=== PATIENT | male | born 1960 | race Caucasian/White ===

== ENCOUNTER → 2019-03-30 | Outpatient (CLI) | payer BC ==
--- NOTE | 2019-03-30 13:04 | Diagnostic Imaging Report ---
INDICATION: Elbow pain COMPARISON: None. FINDINGS: 3 views of the left elbow show no fractures, dislocations, or other acute bony abnormalities identified. Joint spaces are well maintained throughout. The soft tissues appear unremarkable. No radiopaque foreign bodies are identified. IMPRESSION: No acute fractures or dislocations of the left elbow. Dictated by: Dictated on workstation # [id number]
== END ==
LOC: RAD FS 12:51
PROVIDERS: ATTEND Nurse Practitioner
DX: M25.522 Pain in left elbow (principal)
CPT/HCPCS: 73080

== ENCOUNTER → 2019-12-15 | Outpatient (CLI) | payer BC ==
--- NOTE | 2019-12-15 09:52 | Diagnostic Imaging Report ---
EXAMINATION: CHEST, PA AND LATERAL. CLINICAL INDICATION: 59-year-old male, cough, congestion. COMPARISON: None. FINDINGS: The heart size and mediastinal contours are unremarkable. There is a normal variant azygous lobe. There is no identified pneumothorax. There is no pleural effusion. There is no identified focal airspace consolidation. IMPRESSION: No identified acute cardiopulmonary abnormality. Dictated by: Dictated on workstation # [id number]
== END ==
LOC: RAD FS 09:25
PROVIDERS: ATTEND Nurse Practitioner Family
DX: J40 Bronchitis, not specified as acute or chronic (principal)
CPT/HCPCS: 71046

== ENCOUNTER → 2020-09-21 | Outpatient (CLI) | payer BC ==
--- NOTE | 2020-09-21 10:22 | Diagnostic Imaging Report ---
INDICATION: Pain and swelling to the left ankle. Time of exam: 9:58 AM 3 views of the left ankle were obtained. Ankle mortise is well maintained. Talar dome is smooth. There is some spurring along the medial malleolus. No osteochondral defect is detected. No fracture or dislocation is seen. There is a moderate-sized plantar calcaneal spur. IMPRESSION: Chronic changes. No acute bony abnormality is detected. Dictated by: Dictated on workstation # [id number]
== END ==
LOC: RAD FS 09:53
PROVIDERS: ATTEND Nurse Practitioner
DX: M25.572 Pain in left ankle and joints of left foot (principal); M25.475 Effusion, left foot
CPT/HCPCS: 73610

== ENCOUNTER 2020-11-28 16:35 | Inpatient (IN) | payer BC ==
[~2020-11-28] VITALS: Ht 180.3 cm; Wt 128.5 kg
--- NOTE | 2020-11-28 16:46 | ED Dyspnea ---
General Stated Complaint: COVID+,PNEUMONIA Source of Information: Patient Exam Limitations: No Limitations History of Present Illness Date Seen by Provider: Nov 28, 2020 Time Seen by Provider: 16:46 Initial Comments 60-year-old male presents with concerns for pneumonia. Patient was tested positive for COVID 9 days ago. Patient went to his primary care provider within the last day or 2 he has had some worsening shortness of breath. They report that they took an x-ray to primary care office and showed pneumonia. Patient oxygen saturations at the clinic was in the upper 80s and low 90s and he was sent to the ER for further evaluation. Patient denies any fevers chills nausea vomiting chest pain or diaphoresis. Patient does report he he had shortness of breath is worsened. He has known known underlying lung disease or COPD. Allergies and Home Medications Allergies Coded Allergies: No Known Drug Allergies (Unverified , 11/28/20) Patient Home Medication List Home Medication List Reviewed: Yes Review of Systems Review of Systems Constitutional: No chills, No fever EENTM: no symptoms reported Respiratory: cough, short of breath Cardiovascular: No chest pain, No palpitations Gastrointestinal: No constipation, No diarrhea, No nausea, No vomiting Genitourinary: no symptoms reported Musculoskeletal: no symptoms reported Skin: no symptoms reported Endocrine: No Symptoms Reported Hematologic/Lymphatic: No Symptoms Reported Past Awwmawp-Ghesvq-Rjktpp Hx Past Med/Social Hx: Reviewed Nursing Past Med/Soc Hx Patient Social History Recent Foreign Travel: No Contact w/Someone Who Travel: No Physical Exam Vital Signs Vital Signs - First Documented 11/28/20 16:47 Temp 37.2 Pulse 77 Resp 22 B/P (MAP) 131/68 (89) Pulse Ox 92 O2 Delivery Room Air Capillary Refill : Height, Weight, BMI Height: '" Weight: lbs. oz. kg; BMI Method: General Appearance: No Apparent Distress, Obese HEENT: PERRL/EOMI Neck: Non Tender, Supple Respiratory: No Accessory Muscle Use, No Respiratory Distress, Decreased Breath Sounds (minimal), Wheezing Cardiovascular: Regular Rate, Rhythm, No Edema Gastrointestinal: Non Tender, Soft Extremity: Normal Capillary Refill, Normal Inspection Neurologic/Psychiatric: Alert, Oriented x3, No Motor/Sensory Deficits, Normal Mood/Affect, practice coordinator II-XII Norm as Tested Skin: Normal Color, Warm/Dry Focused Exam Lactate Level 11/28/20 17:05: Lactic Acid Level 1.27 Lactic Acid Level Laboratory Tests Test 11/28/20 17:05 Lactic Acid Level 1.27 MMOL/L (0.50-2.00) Progress/Results/Core Measures Results/Orders Lab Results Laboratory Tests Test 11/28/20 17:05 Range/Units White Blood Count 3.4 L 4.3-11.0 10^3/uL Red Blood Count 4.54 4.35-5.85 10^6/uL Hemoglobin 13.6 13.3-17.7 G/DL Hematocrit 41 40-54 % Mean Corpuscular Volume 89 80-99 FL Mean Corpuscular Hemoglobin 30 25-34 PG Mean Corpuscular Hemoglobin Concent 34 32-36 G/DL Red Cell Distribution Width 13.8 10.0-14.5 % Platelet Count 108 L 130-400 10^3/uL Mean Platelet Volume 11.1 H 7.4-10.4 FL Immature Granulocyte % (Auto) 2 % Neutrophils (%) (Auto) 62 42-75 % Lymphocytes (%) (Auto) 27 12-44 % Monocytes (%) (Auto) 9 0-12 % Eosinophils (%) (Auto) 0 0-10 % Basophils (%) (Auto) 0 0-10 % Neutrophils # (Auto) 2.1 1.8-7.8 X 10^3 Lymphocytes # (Auto) 0.9 L 1.0-4.0 X 10^3 Monocytes # (Auto) 0.3 0.0-1.0 X 10^3 Eosinophils # (Auto) 0.0 0.0-0.3 10^3/uL Basophils # (Auto) 0.0 0.0-0.1 10^3/uL Immature Granulocyte # (Auto) 0.1 0.0-0.1 10^3/uL Sodium Level 137 135-145 MMOL/L Potassium Level 3.8 3.6-5.0 MMOL/L Chloride Level 99 98-107 MMOL/L Carbon Dioxide Level 28 21-32 MMOL/L Anion Gap 10 5-14 MMOL/L Blood Urea Nitrogen 21 H 7-18 MG/DL Creatinine 1.07 0.60-1.30 MG/DL Estimat Glomerular Filtration Rate > 60 BUN/Creatinine Ratio 20 Glucose Level 99 70-105 MG/DL Lactic Acid Level 1.27 0.50-2.00 MMOL/L Calcium Level 8.7 8.5-10.1 MG/DL Corrected Calcium 8.9 8.5-10.1 MG/DL Total Bilirubin 0.4 0.1-1.0 MG/DL Aspartate Amino Transf (AST/SGOT) 46 H 5-34 U/L Alanine Aminotransferase (ALT/SGPT) 46 0-55 U/L Alkaline Phosphatase 50 40-136 U/L C-Reactive Protein 6.23 H <0.50 MG/DL Total Protein 6.6 6.4-8.2 GM/DL Albumin 3.8 3.2-4.5 GM/DL My Orders Orders - REINOSO,JOHN L DO Cbc With Automated Diff (11/28/20 16:52) Comprehensive Metabolic Panel (11/28/20 16:52) Crp Fs (11/28/20 16:52) Chest 1 View Ap/Pa Only (11/28/20 16:52) Albuterol/Ipra Inhalation Soln (Duoneb I (11/28/20 17:00) Svn Small Volume Nebulizer (11/28/20 16:52) Blood Culture (11/28/20 17:06) Lactic Acid Analyzer (11/28/20 17:06) Dexamethasone Injection (Decadron Inje (11/28/20 17:45) Acetaminophen Tablet (Tylenol Tablet) (11/28/20 18:22) Orphenadrine Inj (Ed Only) (Norflex Inje (11/28/20 18:22) Enoxaparin Injection (Lovenox Injection) (11/28/20 19:00) Medications Given in ED Current Medications Medications Dose Ordered Sig/Vicente Route Start Time Stop Time Status Last Admin Dose Admin Albuterol/ Ipratropium 3 ml ONCE ONCE INH 11/28/20 17:00 11/28/20 17:01 DC 11/28/20 17:22 3 ML Dexamethasone Sodium Phosphate 10 mg ONCE ONCE IV 11/28/20 17:45 11/28/20 17:46 DC 11/28/20 18:19 10 MG Vital Signs/I&O 11/28/20 11/28/20 16:47 17:12 Temp 37.2 Pulse 77 Resp 22 B/P (MAP) 131/68 (89) Pulse Ox 92 O2 Delivery Room Air Room Air Progress Progress Note : Time: 17:55 Progress Note Patient fell asleep while waiting to be discharged. He was initially wanted to be discharged home for a trial of outpatient therapy. However when he fell asleep his oxygen dropped into the mid 80s. This may be normal for him as he potentially has obstructive sleep apnea. However patient to be admitted for treatment based on this low oxygen. 1844 patient requested transfer to an [facility] this Dr. Proctor's his PCP. I called Dr. Proctor at 1800, [phone], with no response. We called the [facility] at 1845, they report that no COVID beds available. I then called and discussed with Dr. Leyva at [facility] who graciously accepted patient transferred to [place] in stable condition Departure Communication (Admissions) Time/Spoke to Consulting Phy: 18:47 Impression Primary Impression: Pneumonia due to COVID-19 virus Disposition: 30 STILL A PATIENT Condition: Stable Admissions Decision to Admit Reason: Admit from ER (General) Decision to Admit/Date: Nov 28, 2020 Time/Decision to Admit Time: 18:30 Transfer Transfer Facility: Departure-Patient Inst. Referrals: BRANDO PROCTOR MD (PCP/Family) Primary Care Physician Patient Instructions: Coronavirus Disease 2019 (COVID-19) Overview Add. Discharge Instructions: JOHN REINOSO DO Nov 28, 2020 16:46
[2020-11-28] MEDS ORDERED: RT-ALBUTEROL/IPRATROPIUM 3 ML (DUONEB) VIAL INH ONE (17:00)
[2020-11-28 17:14] LABS: BASOPHILS % (AUTO) 0 % (0-10); EOSINOPHILS % (AUTO) 0 % (0-10); HEMATOCRIT 41 % (40-54); HEMOGLOBIN 13.6 G/DL (13.3-17.7); LYMPHOCYTES % (AUTO) 27 % (12-44); MEAN CORPUSCULAR HEMOGLOBIN 30 PG (25-34); MEAN CORPUSCULAR HGB CONC 34 G/DL (32-36); MEAN CORPUSCULAR VOLUME 89 FL (80-99); MEAN PLATELET VOLUME 11.1 FL (7.4-10.4); MONOCYTES % (AUTO) 9 % (0-12); NEUTROPHILS % (AUTO) 62 % (42-75); PLATELET COUNT 108 10^3/uL (130-400); WHITE BLOOD COUNT 3.4 10^3/uL (4.3-11.0)
[2020-11-28 17:15] LABS: LYMPHOCYTES # (AUTO) 0.9 X 10^3 (1.0-4.0); MONOCYTES # (AUTO) 0.3 X 10^3 (0.0-1.0); NEUTROPHILS # (AUTO) 2.1 X 10^3 (1.8-7.8)
--- NOTE | 2020-11-28 17:16 | Diagnostic Imaging Report ---
EXAM: CHEST 1 VIEW AP/PA ONLY INDICATION: Shortness of breath. COVID positive. COMPARISON: Chest radiograph from 12/15/2019. FINDINGS: Cardiomegaly. Patchy airspace opacities are most focal in the right upper lobe. No large pleural effusion or pneumothorax. No acute osseous findings. IMPRESSION: Patchy bilateral airspace opacities, suspicious for pneumonitis and compatible with reported COVID diagnosis. Dictated by: Dictated on workstation # [id number]
[2020-11-28 17:35] LABS: CHLORIDE 99 MMOL/L (98-107); POTASSIUM 3.8 MMOL/L (3.6-5.0); SODIUM 137 MMOL/L (135-145)
[2020-11-28 17:36] LABS: ALANINE AMINOTRANSFERASE 46 U/L (0-55); ALBUMIN 3.8 GM/DL (3.2-4.5); ALKALINE PHOSPHATASE 50 U/L (40-136); BILIRUBIN,TOTAL 0.4 MG/DL (0.1-1.0); BUN/CREATININE RATIO 20; CALCIUM 8.7 MG/DL (8.5-10.1); CARBON DIOXIDE 28 MMOL/L (21-32); CREATININE SERUM 1.07 MG/DL (0.60-1.30); GFR ESTIMATED > 60; GLUCOSE 99 MG/DL (70-105); TOTAL PROTEIN 6.6 GM/DL (6.4-8.2)
[2020-11-28] MEDS ORDERED: IVER3TAB2 PO ×2 (17:52→17:53)
[2020-11-28] MEDS ORDERED: RT-ALBUINH INH (17:54)
[2020-11-28] MEDS ORDERED: ORPHENADRINE 60 MG/2 ML (NORFLEX) AMP (ED ONLY) IV STA (18:22)
[2020-11-28] MEDS ORDERED: ACETAMINOPHEN 500 MG TAB (TYLENOL) PO STA (18:22)
[2020-11-28] MEDS ORDERED: ENOXAPARIN 40 MG/0.4 ML (LOVENOX) SYR SC ONE (19:00)
[2020-11-28 22:21] VITALS: BP 135/98
[2020-11-28] MEDS ORDERED: CATHETER FLUSH 10 ML SYR IV PRN (22:30)
[2020-11-28] MEDS ORDERED: RT-ALBUTEROL INHALER HFA (VENTOLIN HFA) 18 GM IH PRN (23:15)
[2020-11-29] VITALS: BP 135/98
[2020-11-29 03:44] VITALS: BP 137/70
[2020-11-29] MEDS: CATHETER FLUSH 10 ML SYR IV SCH ×3 (06:21→21:18)
[2020-11-29] MEDS: RT-ALBUTEROL INHALER HFA (VENTOLIN HFA) 18 GM IH SCH ×4 (06:53→19:20)
[2020-11-29 07:09] LABS: BASOPHILS % (AUTO) 0 % (0-10); EOSINOPHILS % (AUTO) 0 % (0-10); HEMATOCRIT 41 % (40-54); HEMOGLOBIN 13.7 g/dL (13.3-17.7); LYMPHOCYTES # (AUTO) 0.4 10^3/uL (1.0-4.0); LYMPHOCYTES % (AUTO) 21 % (12-44); MEAN CORPUSCULAR HEMOGLOBIN 30 pg (25-34); MEAN CORPUSCULAR HGB CONC 34 g/dL (32-36); MEAN CORPUSCULAR VOLUME 90 fL (80-99); MONOCYTES # (AUTO) 0.1 10^3/uL (0.0-1.0); MONOCYTES % (AUTO) 7 % (0-12); NEUTROPHILS # (AUTO) 1.4 10^3/uL (1.8-7.8); NEUTROPHILS % (AUTO) 70 % (42-75); PLATELET COUNT 102 10^3/uL (130-400)
[2020-11-29 07:32] LABS: ALBUMIN 3.7 GM/DL (3.2-4.5); CHLORIDE 102 MMOL/L (98-107); POTASSIUM 4.1 MMOL/L (3.6-5.0); SODIUM 139 MMOL/L (135-145)
[2020-11-29 07:33] LABS: CALCIUM 8.7 MG/DL (8.5-10.1)
[2020-11-29 07:34] LABS: GLUCOSE 130 MG/DL (70-105); TOTAL PROTEIN 6.9 GM/DL (6.4-8.2)
[2020-11-29 07:35] LABS: CARBON DIOXIDE 25 MMOL/L (21-32)
[2020-11-29 07:36] LABS: BILIRUBIN,TOTAL 0.4 MG/DL (0.1-1.0)
[2020-11-29 07:38] LABS: ALKALINE PHOSPHATASE 47 U/L (40-136); CREATININE SERUM 0.82 MG/DL (0.60-1.30); GFR ESTIMATED > 60
[2020-11-29 07:39] LABS: BUN/CREATININE RATIO 23
[2020-11-29 07:41] LABS: ALANINE AMINOTRANSFERASE 56 U/L (0-55)
[2020-11-29 08:00] VITALS: BP 138/87
[2020-11-29] MEDS: ENOXAPARIN 40 MG/0.4 ML (LOVENOX) SYR SC SCH ×2 (08:16→20:47)
[2020-11-29] MEDS: ACETAMINOPHEN 325 MG TABLET PO PRN ×2 (09:44→20:47)
[2020-11-29] MEDS ORDERED: MULT-1067 PO (11:20)
[2020-11-29] MEDS ORDERED: LORA10TA76 PO (11:20)
[2020-11-29] MEDS ORDERED: HYDR25TA4 PO (11:20)
[2020-11-29] MEDS ORDERED: ACET-2267 PO (11:20)
[2020-11-29] MEDS ORDERED: PANT40TA52 PO (11:20)
[2020-11-29] MEDS ORDERED: REMDESIVIR INJ 200 MG in NS (IVPB) 210 ML IV NR (11:25)
[2020-11-29] MEDS: dexAMETHasone 6 MG TAB (DECADRON) PO SCH (11:59)
[2020-11-29] MEDS: guaiFENesin SYRUP 100 MG/5 ML 10 ML (ROBITUSSIN SF) PO PRN (11:59)
[2020-11-29 12:00] VITALS: BP 142/72
[2020-11-29] MEDS ORDERED: NS IV 500 ML 500 ML IV SCH (12:30)
--- NOTE | 2020-11-29 13:29 | History & Physical-Hospitalist ---
History of Present Illness HPI/Chief Complaint Pt is a 60yoCM with a PMH of HTN who presented to the ER at [place] due to SOB. He states his symptoms started roughly 10 days ago with cough, SOB,and fever. He was seen by his primary care doctor early in his diagnosis and was started on azithromycin and decadron on 11/22. Despite this over the last two days he has had worsening SOB and was seen by his PCP. Sats at his doctor's office were in the 80s and CXR revealed infiltrates so he was referred to the ER. He as mildly hypoxic there as well and needed 3lpm via NC to maintain oxygen saturations so he was admitted for further care. Source: patient Exam Limitations: no limitations Date Seen 11/29/20 Time Seen by a Provider: 13:29 Attending Physician Milka Leyva MD PCP Madi Proctor MD Referring Physician Date of Admission Nov 28, 2020 at 20:40 Home Medications & Allergies Home Medications Reviewed patient Home Medication Reconciliation performed by pharmacy medication reconciliations pharmacy technician infusion and/or nursing. Patients Allergies have been reviewed. Allergies Allergies Coded Allergies No Known Drug Allergies (Iebmynvsaz52/29/20) Past Glucwfm-Iyqzxq-Hiagxi Hx Past Med/Social Hx: Reviewed Nursing Past Med/Soc Hx Patient Social History Alcohol Use: Denies Use Recreational Drug Use: No Smoking Status: Never a Smoker 2nd Hand Smoke Exposure: No Recent Foreign Travel: No Contact w/other who traveled: No Recent Hopitalizations: No Recent Infectious Disease Expo: Yes Seasonal Allergies Seasonal Allergies: No Past Medical History Cardiac: Hypertension Family History Reviewed Nursing Family Hx Review of Systems Constitutional: chills, fever EENTM: other (loss of taste, improving today though) Respiratory: cough, short of breath Cardiovascular: edema (resolved with HCTZ use ) Gastrointestinal: no symptoms reported Genitourinary: no symptoms reported Musculoskeletal: no symptoms reported Skin: no symptoms reported Psychiatric/Neurological: No Symptoms Reported Physical Exam Physical Exam Vital Signs Vital Signs - First Documented 11/28/20 11/28/20 11/28/20 16:47 22:21 23:07 Temp 37.2 Pulse 77 Resp 22 B/P (MAP) 131/68 (89) Pulse Ox 92 O2 Delivery Room Air O2 Flow Rate 3.00 FiO2 21 Capillary Refill : Less Than 3 Seconds Height, Weight, BMI Height: '" Weight: lbs. oz. kg; 39.52 BMI Method: General Appearance: No Apparent Distress, WD/WN, Obese HEENT: PERRL/EOMI, Moist Mucous Membranes; No Scleral Icterus (L), No Scleral Icterus (R) Neck: Normal Inspection, Supple Respiratory: Lungs Clear, No Accessory Muscle Use, Other (on 3lpm) Cardiovascular: Regular Rate, Rhythm, No Murmur Gastrointestinal: Normal Bowel Sounds, Non Tender, Soft Extremity: Normal Capillary Refill, No Calf Tenderness, No Pedal Edema Neurologic/Psychiatric: Alert, Oriented x3, Normal Mood/Affect Results Results/Procedures Labs Laboratory Tests 11/28/20 17:05 11/29/20 06:04 Patient resulted labs reviewed. Imaging: Reviewed Imaging Report Imaging [facility], [place] NAME: FARIDA [facility] REC#: [id number] PT STATUS: REG ER : 1960 PHYSICIAN: JOHN REINOSO DO ADMIT DATE: 11/28/20/ER FS Signed Date of Exam:11/28/20 CHEST 1 VIEW AP/PA ONLY EXAM: CHEST 1 VIEW AP/PA ONLY INDICATION: Shortness of breath. COVID positive. COMPARISON: Chest radiograph from 12/15/2019. FINDINGS: Cardiomegaly. Patchy airspace opacities are most focal in the right upper lobe. No large pleural effusion or pneumothorax. No acute osseous findings. IMPRESSION: Patchy bilateral airspace opacities, suspicious for pneumonitis and compatible with reported COVID diagnosis. Dictated by: Dictated on workstation # [id number] Dict: 11/28/20 1713 Trans: 11/28/201751 AS6 [id number] Interpreted by: MARU MORA MD Electronically signed by: MARU MORA MD 11/28/201 Assessment/Plan Admission Diagnosis Acute hypoxic respiratory failure due to COVID19 Admission Status: Inpatient Order (span 2 midnights) Reason for Inpatient Admission: see below Assessment and Plan Acute hypoxic respiratory failure due to COVID19 Continue remdesivir, decadron Convalescent plasma ordered Diagnosis/Problems Diagnosis/Problems (1) Pneumonia due to COVID-19 virus Status: Acute Clinical Quality Measures DVT/VTE Risk/Contraindication: Risk Factor Score Per Nursin RFS Level Per Nursing on Admit: 3=High MILKA LEYVA MD Nov 29, 2020 13:29
[2020-11-29 16:43] VITALS: BP 115/57
[2020-11-29] MEDS ORDERED: LORATADINE (CLARITIN) 10 MG TAB PO PRN (19:45)
[2020-11-29 20:43] VITALS: BP 135/74
[2020-11-30 00:24] VITALS: BP 108/50
[2020-11-30] MEDS: guaiFENesin SYRUP 100 MG/5 ML 10 ML (ROBITUSSIN SF) PO PRN ×3 (03:37→15:37)
[2020-11-30] MEDS: RT-ALBUTEROL INHALER HFA (VENTOLIN HFA) 18 GM IH SCH ×7 (05:26→20:36)
[2020-11-30] MEDS: MULTIVIT W/MINERALS TAB (THERAGRAN M) PO SCH (06:08)
[2020-11-30] MEDS: CATHETER FLUSH 10 ML SYR IV SCH ×3 (06:08→20:36)
[2020-11-30 07:18] LABS: HEMOGLOBIN 13.4 g/dL (13.3-17.7); MEAN PLATELET VOLUME 12.4 fL (9.0-12.2); WHITE BLOOD COUNT 4.8 10^3/uL (4.3-11.0)
[2020-11-30 07:22] LABS: ALBUMIN 3.6 GM/DL (3.2-4.5); CHLORIDE 103 MMOL/L (98-107); POTASSIUM 4.1 MMOL/L (3.6-5.0); SODIUM 138 MMOL/L (135-145)
[2020-11-30 07:24] LABS: CALCIUM 8.6 MG/DL (8.5-10.1)
[2020-11-30 07:25] LABS: GLUCOSE 101 MG/DL (70-105); TOTAL PROTEIN 6.7 GM/DL (6.4-8.2)
[2020-11-30 07:26] LABS: CARBON DIOXIDE 25 MMOL/L (21-32)
[2020-11-30 07:27] LABS: BILIRUBIN,TOTAL 0.5 MG/DL (0.1-1.0)
[2020-11-30 07:28] LABS: ALKALINE PHOSPHATASE 45 U/L (40-136); CREATININE SERUM 0.81 MG/DL (0.60-1.30); GFR ESTIMATED > 60
[2020-11-30 07:29] LABS: BUN/CREATININE RATIO 23
[2020-11-30 07:31] LABS: ALANINE AMINOTRANSFERASE 53 U/L (0-55)
[2020-11-30 08:00] VITALS: BP 140/80
[2020-11-30] MEDS: ENOXAPARIN 40 MG/0.4 ML (LOVENOX) SYR SC SCH ×2 (08:00→20:35)
[2020-11-30] MEDS: PANTOPRAZOLE 40 MG (PROTONIX) TAB PO SCH (08:00)
[2020-11-30] MEDS: dexAMETHasone 6 MG TAB (DECADRON) PO SCH (08:00)
[2020-11-30] MEDS: HYDROCHLOROTHIAZIDE 25 MG (HCTZ) TAB PO SCH (08:00)
[2020-11-30] MEDS: REMDESIVIR INJ 100 MG in NS (IVPB) 230 ML IV SCH (11:34)
--- NOTE | 2020-11-30 14:56 | Progress Note - Hospitalist ---
Subjective HPI/CC On Admission Date Seen by Provider: Nov 30, 2020 Time Seen by Provider: 14:54 Pt is a 60yoCM with a PMH of HTN who presented to the ER at [place] due to SOB. He states his symptoms started roughly 10 days ago with cough, SOB,and fever. He was seen by his primary care doctor early in his diagnosis and was started on azithromycin and decadron on 11/22. Despite this over the last two days he has had worsening SOB and was seen by his PCP. Sats at his doctor's office were in the 80s and CXR revealed infiltrates so he was referred to the ER. He as mildly hypoxic there as well and needed 3lpm via NC to maintain oxygen saturations so he was admitted for further care. Subjective/Events-last exam Pt reports feeling well today. No complaints. Still on nasal cannula. Focused Exam Lactate Level 11/28/20 17:05: Lactic Acid Level 1.27 Objective Exam Vital Signs Vital Signs Date Time Temp Pulse Resp B/P (MAP) Pulse Ox O2 Delivery O2 Flow Rate FiO2 11/30/20 20:12 36.1 64 95 24 11/30/20 16:09 20 135/72 (93) Nasal Cannula 2.00 Capillary Refill : Less Than 3 Seconds General Appearance: No Apparent Distress, Chronically ill, Obese Respiratory: Lungs Clear, No Respiratory Distress Cardiovascular: Regular Rate, Rhythm, No Murmur Neurologic/Psychiatric: Alert, Oriented x3, Normal Mood/Affect Results/Procedures Lab Laboratory Tests 11/30/20 06:29 Patient resulted labs reviewed. Imaging: Reviewed Imaging Report Assessment/Plan Assessment and Plan Assess & Plan/Chief Complaint Acute hypoxic respiratory failure due to COVID19 Continue remdesivir, decadron Convalescent plasma ordered, awaiting arrival Supportive care Lovenox MAT protocol IS Wean oxygen as able HTN Continue home HCTZ BP well controlled DVT ppx: Lovenox Diagnosis/Problems Diagnosis/Problems (1) Pneumonia due to COVID-19 virus Status: Acute Clinical Quality Measures DVT/VTE Risk/Contraindication: Risk Factor Score Per Nursin RFS Level Per Nursing on Admit: 3=High MILKA VELARDE MD Nov 30, 2020 14:56
[2020-11-30] MEDS: ACETAMINOPHEN 325 MG TABLET PO PRN (15:37)
[2020-11-30 16:09] VITALS: BP 135/72
[2020-11-30] MEDS: PROMETHAZINE/ CODEINE SYRUP 5 ML UDC PO PRN (20:35)
[2020-12-01 00:02] VITALS: BP 110/62
[2020-12-01] MEDS: guaiFENesin SYRUP 100 MG/5 ML 10 ML (ROBITUSSIN SF) PO PRN (03:59)
[2020-12-01] MEDS: MULTIVIT W/MINERALS TAB (THERAGRAN M) PO SCH (06:06)
[2020-12-01] MEDS: CATHETER FLUSH 10 ML SYR IV SCH ×3 (06:06→21:10)
[2020-12-01] MEDS: RT-ALBUTEROL INHALER HFA (VENTOLIN HFA) 18 GM IH SCH ×4 (07:05→21:11)
[2020-12-01 08:00] VITALS: BP 141/75
[2020-12-01] MEDS: HYDROCHLOROTHIAZIDE 25 MG (HCTZ) TAB PO SCH (09:10)
[2020-12-01] MEDS: dexAMETHasone 6 MG TAB (DECADRON) PO SCH (09:10)
[2020-12-01] MEDS: PANTOPRAZOLE 40 MG (PROTONIX) TAB PO SCH (09:10)
[2020-12-01] MEDS: ENOXAPARIN 40 MG/0.4 ML (LOVENOX) SYR SC SCH ×2 (09:10→21:10)
[2020-12-01] MEDS: PROMETHAZINE/ CODEINE SYRUP 5 ML UDC PO PRN ×2 (11:24→18:02)
[2020-12-01] MEDS: REMDESIVIR INJ 100 MG in NS (IVPB) 230 ML IV SCH (11:24)
[2020-12-01] MEDS: ACETAMINOPHEN 325 MG TABLET PO PRN (11:25)
--- NOTE | 2020-12-01 11:45 | Progress Note - Hospitalist ---
Subjective HPI/CC On Admission Date Seen by Provider: Dec 01, 2020 Time Seen by Provider: 11:43 Pt is a 60yoCM with a PMH of HTN who presented to the ER at [place] due to SOB. He states his symptoms started roughly 10 days ago with cough, SOB,and fever. He was seen by his primary care doctor early in his diagnosis and was started on azithromycin and decadron on 11/22. Despite this over the last two days he has had worsening SOB and was seen by his PCP. Sats at his doctor's office were in the 80s and CXR revealed infiltrates so he was referred to the ER. He as mildly hypoxic there as well and needed 3lpm via NC to maintain oxygen saturations so he was admitted for further care. Subjective/Events-last exam Pt reports feeling well. Was able to be off oxygen earlier but sats dropped back in to the 80s. Focused Exam Lactate Level 11/28/20 17:05: Lactic Acid Level 1.27 Objective Exam Vital Signs Vital Signs Date Time Temp Pulse Resp B/P (MAP) Pulse Ox O2 Delivery O2 Flow Rate FiO2 12/01/20 10:39 95 Nasal Cannula 2.00 12/01/20 08:00 36.8 67 20 141/75 (97) 11/30/20 20:12 24 Capillary Refill : Less Than 3 Seconds General Appearance: No Apparent Distress, Chronically ill Respiratory: Lungs Clear, No Accessory Muscle Use; No Rhonci, No Wheezing; Other Cardiovascular: Regular Rate, Rhythm, No Murmur Extremity: No Calf Tenderness, No Pedal Edema Neurologic/Psychiatric: Alert, Oriented x3 Results/Procedures Lab Patient resulted labs reviewed. Imaging: Reviewed Imaging Report Assessment/Plan Assessment and Plan Assess & Plan/Chief Complaint Acute hypoxic respiratory failure due to COVID19 Continue remdesivir day 3, decadron Convalescent plasma ordered, awaiting arrival still Supportive care Lovenox MAT protocol IS Wean oxygen as able HTN Continue home HCTZ BP well controlled DVT ppx: Lovenox Diagnosis/Problems Diagnosis/Problems (1) Pneumonia due to COVID-19 virus Status: Acute Clinical Quality Measures DVT/VTE Risk/Contraindication: Risk Factor Score Per Nursin RFS Level Per Nursing on Admit: 3=High MILKA VELARDE MD Dec 01, 2020 11:45
[2020-12-01 11:53] LABS: ALANINE AMINOTRANSFERASE 96 U/L (0-55); ALBUMIN 3.7 GM/DL (3.2-4.5); ALKALINE PHOSPHATASE 46 U/L (40-136); BILIRUBIN,TOTAL 0.4 MG/DL (0.1-1.0); BUN/CREATININE RATIO 24; CALCIUM 8.5 MG/DL (8.5-10.1); CARBON DIOXIDE 21 MMOL/L (21-32); CHLORIDE 103 MMOL/L (98-107); CREATININE SERUM 0.83 MG/DL (0.60-1.30); GFR ESTIMATED > 60; GLUCOSE 101 MG/DL (70-105); SODIUM 136 MMOL/L (135-145); TOTAL PROTEIN 7.2 GM/DL (6.4-8.2)
[2020-12-01 16:16] VITALS: BP 132/77
[2020-12-02 00:07] VITALS: BP 129/76
[2020-12-02 05:59] LABS: HEMOGLOBIN 14.2 g/dL (13.3-17.7); WHITE BLOOD COUNT 6.2 10^3/uL (4.3-11.0)
[2020-12-02 06:12] LABS: ALBUMIN 3.9 GM/DL (3.2-4.5); CHLORIDE 102 MMOL/L (98-107); SODIUM 138 MMOL/L (135-145)
[2020-12-02 06:13] LABS: CALCIUM 8.8 MG/DL (8.5-10.1)
[2020-12-02 06:15] LABS: GLUCOSE 95 MG/DL (70-105); TOTAL PROTEIN 7.1 GM/DL (6.4-8.2)
[2020-12-02 06:16] LABS: BILIRUBIN,TOTAL 0.7 MG/DL (0.1-1.0); CARBON DIOXIDE 25 MMOL/L (21-32)
[2020-12-02] MEDS: MULTIVIT W/MINERALS TAB (THERAGRAN M) PO SCH (06:16)
[2020-12-02] MEDS: CATHETER FLUSH 10 ML SYR IV SCH ×3 (06:16→20:49)
[2020-12-02 06:18] LABS: ALKALINE PHOSPHATASE 49 U/L (40-136); GFR ESTIMATED > 60
[2020-12-02 06:19] LABS: BUN/CREATININE RATIO 26
[2020-12-02 06:21] LABS: ALANINE AMINOTRANSFERASE 169 U/L (0-55)
[2020-12-02] MEDS: RT-ALBUTEROL INHALER HFA (VENTOLIN HFA) 18 GM IH SCH ×2 (07:31→18:40)
[2020-12-02 08:00] VITALS: BP 139/82
[2020-12-02] MEDS: dexAMETHasone 6 MG TAB (DECADRON) PO SCH (09:03)
[2020-12-02] MEDS: PANTOPRAZOLE 40 MG (PROTONIX) TAB PO SCH (09:03)
[2020-12-02] MEDS: ENOXAPARIN 40 MG/0.4 ML (LOVENOX) SYR SC SCH ×2 (09:03→20:48)
[2020-12-02] MEDS: HYDROCHLOROTHIAZIDE 25 MG (HCTZ) TAB PO SCH (09:03)
[2020-12-02] MEDS: REMDESIVIR INJ 100 MG in NS (IVPB) 230 ML IV SCH (10:15)
[2020-12-02 10:44] VITALS: BP 139/82
--- NOTE | 2020-12-02 12:47 | Progress Note - Hospitalist ---
Subjective HPI/CC On Admission Date Seen by Provider: Dec 02, 2020 Time Seen by Provider: 12:45 Pt is a 60yoCM with a PMH of HTN who presented to the ER at [place] due to SOB. He states his symptoms started roughly 10 days ago with cough, SOB,and fever. He was seen by his primary care doctor early in his diagnosis and was started on azithromycin and decadron on 11/22. Despite this over the last two days he has had worsening SOB and was seen by his PCP. Sats at his doctor's office were in the 80s and CXR revealed infiltrates so he was referred to the ER. He as mildly hypoxic there as well and needed 3lpm via NC to maintain oxygen saturations so he was admitted for further care. Subjective/Events-last exam Pt reports doing well. Oxygen overnight had to be increased but now back to 2lpm. Pt requesting to DC home due to circumstances at home (father in law in hospital, another family member just ). Discussed importance of compliance with treatment and medical optimization prior to DC. Agreeable to stay today. Objective Exam Vital Signs Vital Signs Date Time Temp Pulse Resp B/P (MAP) Pulse Ox O2 Delivery O2 Flow Rate FiO2 12/02/20 10:44 36.0 64 92 12/02/20 08:00 Nasal Cannula 3.00 12/02/20 08:00 18 139/82 (101) 11/30/20 20:12 24 Capillary Refill : Less Than 3 Seconds General Appearance: No Apparent Distress, Obese Respiratory: Lungs Clear, No Accessory Muscle Use, Other (on 2lpm) Cardiovascular: Regular Rate, Rhythm, No Murmur Gastrointestinal: Normal Bowel Sounds, Non Tender, Soft Neurologic/Psychiatric: Alert, Oriented x3 Results/Procedures Lab Laboratory Tests 12/02/20 05:37 Patient resulted labs reviewed. Imaging: Reviewed Imaging Report Assessment/Plan Assessment and Plan Assess & Plan/Chief Complaint Acute hypoxic respiratory failure due to COVID19 Continue remdesivir day 4, decadron Convalescent plasma ordered, awaiting arrival still Supportive care Lovenox MAT protocol IS Wean oxygen as able Home study ordered Will plan to DC home tomorrow if stable after he completes remdesivir HTN Continue home HCTZ BP well controlled DVT ppx: Lovenox Diagnosis/Problems Diagnosis/Problems (1) Pneumonia due to COVID-19 virus Status: Acute Clinical Quality Measures DVT/VTE Risk/Contraindication: Risk Factor Score Per Nursin RFS Level Per Nursing on Admit: 3=High MILKA VELARDE MD Dec 02, 2020 12:47
[2020-12-02] MEDS ORDERED: NS IV 500 ML 500 ML ONE (16:11)
[2020-12-02 16:13] VITALS: BP 148/85
[2020-12-02 16:39] VITALS: BP 148/85
[2020-12-02 16:58] VITALS: BP 123/76
[2020-12-02] MEDS: guaiFENesin SYRUP 100 MG/5 ML 10 ML (ROBITUSSIN SF) PO PRN (20:48)
[2020-12-03 00:27] VITALS: BP 130/66
[2020-12-03] MEDS: MULTIVIT W/MINERALS TAB (THERAGRAN M) PO SCH (06:03)
[2020-12-03] MEDS: CATHETER FLUSH 10 ML SYR IV SCH (06:03)
[2020-12-03 06:58] LABS: ALBUMIN 3.9 GM/DL (3.2-4.5); CHLORIDE 102 MMOL/L (98-107); POTASSIUM 3.8 MMOL/L (3.6-5.0); SODIUM 139 MMOL/L (135-145)
[2020-12-03 06:59] LABS: CALCIUM 9.2 MG/DL (8.5-10.1)
[2020-12-03 07:00] LABS: GLUCOSE 89 MG/DL (70-105)
[2020-12-03 07:01] LABS: TOTAL PROTEIN 7.3 GM/DL (6.4-8.2)
[2020-12-03 07:02] LABS: BILIRUBIN,TOTAL 0.7 MG/DL (0.1-1.0); CARBON DIOXIDE 26 MMOL/L (21-32)
[2020-12-03 07:04] LABS: ALKALINE PHOSPHATASE 46 U/L (40-136); GFR ESTIMATED > 60
[2020-12-03 07:05] LABS: BUN/CREATININE RATIO 29
[2020-12-03 07:07] LABS: ALANINE AMINOTRANSFERASE 174 U/L (0-55)
[2020-12-03] MEDS: RT-ALBUTEROL INHALER HFA (VENTOLIN HFA) 18 GM IH SCH (07:33)
[2020-12-03 07:45] VITALS: BP 153/87
--- NOTE | 2020-12-03 07:57 | Discharge Inst-Simple/Standard ---
Discharge Inst-Standard Patient Instructions/Follow Up Plan of Care/Instructions/FU: Please continue to take your medications as written. Please follow up with your primary care doctor to follow up this hospital stay. Activity as Tolerated: Yes Discharge Diet: Low Sodium Diet Return to The Hospital For: Chest pain, shortness of breath, cough, fever, if you feel you are getting worse. MILKA VELARDE MD Dec 03, 2020 07:57
--- NOTE | 2020-12-03 08:05 | Discharge Summary ---
Diagnosis/Chief Complaint Date of Admission Nov 28, 2020 at 20:40 Date of Discharge Discharge Date: Dec 03, 2020 Admission Diagnosis Acute hypoxic respiratory failure due to COVID19 Primary Care Brando Proctor MD Discharge Diagnosis (1) Pneumonia due to COVID-19 virus Status: Acute Discharge Summary Discharge Physical Exam Allergies: Coded Allergies: No Known Drug Allergies (Unverified , 11/28/20) Vitals & I&Os Vital Signs Date Time Temp Pulse Resp B/P (MAP) Pulse Ox O2 Delivery O2 Flow Rate FiO2 12/03/20 07:39 Nasal Cannula 3.00 12/03/20 07:33 92 12/03/20 00:27 36.0 63 22 130/66 (87) 11/30/20 20:12 24 General Appearance: No Apparent Distress, Obese Respiratory: Lungs Clear, No Accessory Muscle Use, Other (on 3lpm NC) Cardiovascular: Regular Rate, Rhythm, No Murmur Neurologic/Psychiatric: Alert, Oriented x3 Hospital Course Patient was admitted with acute hypoxic respiratory failure due to COVID-19. He was treated with Decadron, convalescent plasma, and Remdesivir. He did well but continued to need 3lpm NC supplemental oxygen. This was arranged prior to DC. He was discharged home at his request in stable and improved condition to follow-up with his primary care provider, Dr Proctor. Labs (last 24 hrs) Laboratory Tests 12/03/20 06:00: Sodium Level 139, Potassium Level 3.8, Chloride Level 102, Carbon Dioxide Level 26, Anion Gap 11, Blood Urea Nitrogen 23H, Creatinine 0.80, Estimat Glomerular Filtration Rate > 60, BUN/Creatinine Ratio 29, Glucose Level 89, Calcium Level 9 .2, Corrected Calcium 9.3, Total Bilirubin 0.7, Aspartate Amino Transf (AST/SGOT) 75H, Alanine Aminotransferase (ALT/SGPT) 174H, Alkaline Phosphatase 46, Total Protein 7.3, Albumin 3.9 Microbiology 11/28/20 Blood Culture - Preliminary, Resulted No growth Patient resulted labs reviewed. Pending Labs Laboratory Tests 12/03/20 06:00: Sodium Level 139, Potassium Level 3.8, Chloride Level 102, Carbon Dioxide Level 26, Anion Gap 11, Blood Urea Nitrogen 23, Creatinine 0.80, Estimat Glomerular Filtration Rate > 60, BUN/Creatinine Ratio 29, Glucose Level 89, Calcium Level 9.2, Corrected Calcium 9.3, Total Bilirubin 0.7, Aspartate Amino Transf (AST/SGOT) 75, Alanine Aminotransferase (ALT/SGPT) 174, Alkaline Phosphatase 46, Total Protein 7.3, Albumin 3.9 Imaging: Reviewed Imaging Report Discussion & Recommendations Discharge Planning: >30 minutes discharge planning Discharge Home Medications: Active Scripts Active Reported Claritin (Loratadine) 10 Mg Tablet 10 Mg PO DAILY PRN Centrum Adults Tablet (Multivitamin/Iron/Folic Acid) 1 Each Tablet 1 Each PO DAILY Tylenol Extra Strength (Acetaminophen) 500 Mg Tablet 1,000 Mg PO Q8H PRN Pantoprazole Sodium 40 Mg Tablet.dr 40 Mg PO DAILY Hydrochlorothiazide 25 Mg Tablet 25 Mg PO DAILY Instructions to patient/family Please see electronic discharge instructions given to patient. Clinical Quality Measures DVT/VTE Risk/Contraindication: Risk Factor Score Per Nursin RFS Level Per Nursing on Admit: 3=High Copy Copies To 1: BRANDO PROCTOR MD, KATELYN M MD Dec 03, 2020 08:05
[2020-12-03] MEDS: REMDESIVIR INJ 100 MG in NS (IVPB) 230 ML IV SCH (09:06)
[2020-12-03] MEDS: PANTOPRAZOLE 40 MG (PROTONIX) TAB PO SCH (09:06)
[2020-12-03] MEDS: ENOXAPARIN 40 MG/0.4 ML (LOVENOX) SYR SC SCH (09:06)
[2020-12-03] MEDS: dexAMETHasone 6 MG TAB (DECADRON) PO SCH (09:06)
[2020-12-03] MEDS: HYDROCHLOROTHIAZIDE 25 MG (HCTZ) TAB PO SCH (09:06)
== END 2020-12-03 10:55 | disposition home or self-care (01) | DRG 177 ==
LOC: EDUNIT# 16:35 → ER FS 16:37 → 4TH 20:40
PROVIDERS: ADMIT Family Medicine; ATTEND Family Medicine
PROC: XW13325 Transfusion of Convalescent Plasma (Nonautologous) into Peripheral Vein, Percutaneous Approach, New Technology Group 5 (ICD-10-PCS; principal; 2020-11-29)
PROC: XW033E5 Introduction of Remdesivir Anti-infective into Peripheral Vein, Percutaneous Approach, New Technology Group 5 (ICD-10-PCS; 2020-11-29)
DX: U07.1 COVID-19 (principal); J96.01 Acute respiratory failure with hypoxia; J12.82 Pneumonia due to coronavirus disease 2019; I10 Essential (primary) hypertension; Z73.0 Burn-out
CPT/HCPCS: 36415; 71045; 80053; 83605; 85025; 85027; 86141; 86900; 86901; 87040; 94640; 94664; 94760; 96372; 96374; 96375

== ENCOUNTER → 2023-03-06 | Outpatient (CLI) | payer BC, MEDICARE ==
[~2023-03-06] MED LIST: ACET-2267 PO; HYDR25TA4 PO; IVER3TAB2 PO; LORA10TA76 PO; MULT-1067 PO; PANT40TA52 PO; RT-ALBUINH INH
--- NOTE | 2023-03-06 11:50 | Diagnostic Imaging Report ---
SHOULDER 3 VIEW LEFT INDICATION: Left shoulder pain COMPARISON: None available. TECHNIQUE: 4 views of the left shoulder. FINDINGS: Glenohumeral alignment is normal. Moderate hypertrophic degenerative changes of the AC joint. Subacromial space is preserved. No fracture or worrisome focal osseous lesion. 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 Dictated by: Dictated on workstation # [id number]
== END ==
LOC: RAD FS 08:49
PROVIDERS: ATTEND Nurse Practitioner
DX: M19.012 Primary osteoarthritis, left shoulder (principal)
CPT/HCPCS: 73030